=== PATIENT | female | born 1935 | race Asian ===

== ENCOUNTER 2020-12-07 19:04 | Emergency (ER) | payer MEDICARE ==
[~2020-12-07] VITALS: Ht 157.5 cm; Wt 56.7 kg
[2020-12-08] MEDS ORDERED: metFORMIN HYDROCHLORIDE 850 MG TAB PO ONE (00:15)
[2020-12-08] MEDS ORDERED: levETIRAcetam 500 MG TAB PO ONE (00:15)
[2020-12-08 02:00] VITALS: BP 117/85
== END 2020-12-08 02:03 | disposition home or self-care (01) ==
LOC: EDSEX 19:06 → ER 19:06
DX: S02.40CA Maxillary fracture, right side, initial encounter for closed fracture (principal); M25.511 Pain in right shoulder; E11.9 Type 2 diabetes mellitus without complications; Z95.0 Presence of cardiac pacemaker; W18.39XA Other fall on same level, initial encounter; Y93.89 Activity, other specified; Y92.89 Other specified places as the place of occurrence of the external cause; Y99.8 Other external cause status
CPT/HCPCS: 70450; 70486; 72125; 73030

== ENCOUNTER 2021-04-24 16:51 | Emergency (ER) | payer MEDICARE, OTHER ==
[2021-04-24] MEDS ORDERED: TETANUS-DIPTH-ACEL PERTUSSIS 0.5ML SYR Tdap IM ONE (17:00)
[2021-04-24] MEDS ORDERED: SODIUM CHLORIDE 0.9% 1,000 ML IV ONE (17:00)
[2021-04-24] MEDS ORDERED: cefTRIAXone 1GM/50ML D5W 50 ML IV ONE (17:00)
[2021-04-24 17:28] LABS: Eosinophils # (auto) 0.1 10 ^3/uL (0-0.8); Hematocrit 40.6 % (36.0-46.0); Lymphocytes # (auto) 1.5 10 ^3/uL (0.4-5.4); Monocytes # (auto) 0.5 10 ^3/uL (0-1.3)
[2021-04-24 17:30] LABS: Basophils # (auto) 0 10 ^3/uL (0-0.2); Basophils % (auto) 0.5 % (0.0-2.0); Eosinophils % (auto) 0.7 % (0.0-7.0); Hemoglobin 13.1 g/dL (12.2-16.2); Lymphocytes % (auto) 15.6 % (10.0-50.0); Mean Corpuscular Hemoglobin 26.3 pg (28.0-32.0); Mean Corpuscular Hgb Conc. 32.3 g/dL (32.0-36.0); Mean Corpuscular Volume 81.4 fL (80.0-100.0); Monocytes % (auto) 5.8 % (0.0-12.0); Neutrophils # (auto) 7.2 10 ^3/uL (1.6-8.6); Neutrophils % (auto) 77.4 % (37.0-80.0); Red Blood Cells 4.99 10^6/uL (4.0-5.20); Red Cell Distribution Width 14.6 % (11.8-14.3); White Blood Cell 9.3 10^3/uL (4.4-10.8)
[2021-04-24 17:45] LABS: Albumin 3.2 g/dL (3.4-5.0); BUN/Creatinine Ratio 22.7; Calcium 8.9 mg/dL (8.5-10.1); Potassium 4.6 mmol/L (3.5-5.1)
[2021-04-24 17:48] LABS: Bilirubin, Total 0.4 mg/dL (0.2-1.0)
[2021-04-24 18:01] LABS: INR 1.05 (0.9-1.15); Partial Thromboplastin Time 24.2 sec (23.6-33.0)
[2021-04-24] MEDS ORDERED: LIDOCAINE 2%HCL (LOCAL ANESTH.) INJ 20ML MDV ID ONE (18:15)
[2021-04-24] MEDS ORDERED: NEOMYCIN-BACITRACIN-POLYM UNITDOSE PKG TOP OINT TOP ONE (18:15)
[2021-04-24] MEDS ORDERED: MIDAZOLAM HCL 2MG/2ML 2ml VIAL (1mg/ml) ONE (18:27)
[2021-04-24] MEDS ORDERED: HYDROmorphone HCL 2 MG/ML VL IV ONE (18:45)
[2021-04-24 20:40] VITALS: BP 159/88
== END 2021-04-24 21:00 | disposition home or self-care (01) ==
LOC: EDBD 16:51 → ER 16:53
DX: S01.81XA Laceration without foreign body of other part of head, initial encounter (principal); S01.21XA Laceration without foreign body of nose, initial encounter; S40.012A Contusion of left shoulder, initial encounter; G30.9 Alzheimer's disease, unspecified; F02.80 Dementia in other diseases classified elsewhere, unspecified severity, without behavioral disturbance, psychotic disturbance, mood disturbance, and anxiety; I48.91 Unspecified atrial fibrillation; J32.9 Chronic sinusitis, unspecified; M17.11 Unilateral primary osteoarthritis, right knee; E46 Unspecified protein-calorie malnutrition; E11.9 Type 2 diabetes mellitus without complications; Z68.29 Body mass index [BMI] 29.0-29.9, adult; Z95.0 Presence of cardiac pacemaker; W01.0XXA Fall on same level from slipping, tripping and stumbling without subsequent striking against object, initial encounter; Y93.89 Activity, other specified; Y92.89 Other specified places as the place of occurrence of the external cause; Y99.8 Other external cause status
CPT/HCPCS: 12016; 36415; 70450; 70486; 71045; 72125; 73030; 73562; 80053; 83735; 85025; 85610; 85730; 90471; 90715; 93005; 96365; 96366; 96375; 99285; J0696; J1170; J2250

== ENCOUNTER 2022-06-28 16:34 | Emergency (ER) | payer MEDICARE ==
[~2022-06-28] VITALS: Ht 157.5 cm; Wt 48.0 kg
[2022-06-28] MEDS ORDERED: TETANUS-DIPTH-ACEL PERTUSSIS 0.5ML SYR Tdap IM ONE (20:30)
[2022-06-28] MEDS ORDERED: LIDOCAINE 1% HCL (LOCAL ANESTH.) INJ 20ML MDV ID ONE (20:30)
[2022-06-28] MEDS ORDERED: LIDOCAINE W/ EPINEPHRINE 2% INJ 20ML VIAL ONE (21:10)
[2022-06-28] MEDS ORDERED: LIDOCAINE W/ EPINEPHRINE 2% INJ 20ML VIAL IJ ONE (21:45)
[2022-06-28 21:54] VITALS: BP 147/75
== END 2022-06-28 22:05 | disposition home or self-care (01) ==
LOC: ER 16:34 → EDBD 16:34 → EDUNIT# 16:34 → ER 21:54
DX: S01.81XA Laceration without foreign body of other part of head, initial encounter (principal); E11.9 Type 2 diabetes mellitus without complications; W22.8XXA Striking against or struck by other objects, initial encounter; Y93.89 Activity, other specified; Y92.098 Other place in other non-institutional residence as the place of occurrence of the external cause; Y99.8 Other external cause status
CPT/HCPCS: 12011; 70450; 90471; 90715; 99284; J2001

== ENCOUNTER 2022-12-09 01:14 | Inpatient (IN) | payer MEDICARE, MEDICAID ==
[~2022-12-09] VITALS: Ht 157.5 cm; Wt 48.0 kg
[2022-12-09] VITALS (54 sets, daily range): BP systolic 73–177; BP diastolic 23–105
[2022-12-09] MEDS: ROCURONIUM 10MG/ML 10ML VIAL IV ONE ×2 (01:35→05:41)
[2022-12-09] MEDS: ETOMIDATE (2MG/ML) 20ML VIAL IV ONE ×2 (01:36→05:37)
[2022-12-09] MEDS: fentaNYL Drip 2500mCg/250mlNS 250 ML IV SCH ×2 (01:40→23:34)
[2022-12-09] MEDS ORDERED: ETOMIDATE (2MG/ML) 20ML VIAL IV ONE (01:45)
[2022-12-09] MEDS ORDERED: ROCURONIUM 10MG/ML 10ML VIAL IV ONE (01:45)
[2022-12-09 02:29] LABS: Albumin 2.8 g/dL (3.4-5.0); BUN/Creatinine Ratio 28.1 (10.0-20.0); Calcium 8.7 mg/dL (8.5-10.1); Potassium 3.9 mmol/L (3.5-5.1)
[2022-12-09 02:32] LABS: Bilirubin, Total 0.6 mg/dL (0.2-1.0); Total Protein 7.2 g/dL (6.4-8.2)
[2022-12-09 02:37] LABS: Eosinophils # (auto) 0 10 ^3/uL (0-0.8); Monocytes # (auto) 0.6 10 ^3/uL (0-1.3); Nucleated Red Blood Cells % 0.1 %; Red Cell Distribution Width 15.2 % (11.8-14.3); White Blood Cell 13.7 10^3/uL (4.4-10.8)
[2022-12-09 02:39] LABS: Basophils # (auto) 0 10 ^3/uL (0-0.2); Basophils % (auto) 0.3 % (0.0-2.0); Hematocrit 40.6 % (36.0-46.0); Hemoglobin 13.4 g/dL (12.2-16.2); Lymphocytes # (auto) 1.2 10 ^3/uL (0.4-5.4); Lymphocytes % (auto) 8.7 % (10.0-50.0); Mean Corpuscular Hemoglobin 25.8 pg (28.0-32.0); Mean Corpuscular Hgb Conc. 32.9 g/dL (32.0-36.0); Mean Corpuscular Volume 78.5 fL (80.0-100.0); Monocytes % (auto) 4.3 % (0.0-12.0); Neutrophils # (auto) 11.9 10 ^3/uL (1.6-8.6); Neutrophils % (auto) 86.7 % (37.0-80.0); Red Blood Cells 5.18 10^6/uL (4.0-5.20)
[2022-12-09 02:52] LABS: INR 1.15 (0.9-1.15); Partial Thromboplastin Time 25.6 sec (24.6-33.4)
[2022-12-09 03:05] LABS: Urine Bacteria FEW /hpf (None Seen); Urine Blood 1+ /uL (Negative); Urine Budding Yeast FEW /hpf (None Seen); Urine Mucus FEW (None Seen); Urine Specific Gravity 1.025 (1.001-1.035); Urine WBC 49 /hpf (0 - 5)
[2022-12-09] MEDS ORDERED: VANCOMYCIN 1GM/250ML 250 ML IV ONE (03:45)
[2022-12-09] MEDS ORDERED: PIPERACILLIN-TAZOB 3.375GM 100 ML IV ONE (03:45)
[2022-12-09] MEDS ORDERED: SODIUM CHLORIDE 0.9% 2,250 ML IV ONE (03:45)
[2022-12-09] MEDS ORDERED: ACETAMINOPHEN 650 MG RECT SUPP PR ONE (04:15)
[2022-12-09] MEDS ORDERED: ENOXAPARIN SOD 40 MG/0.4 ML SYRINGE SC ONE (04:15)
[2022-12-09] MEDS ORDERED: ONDANSETRON HCL 4 MG/2 ML VIAL IV PRN (09:45)
[2022-12-09] MEDS ORDERED: VANCOMYCIN PER PHARMACY 1,000 MG IV SCH (09:45)
[2022-12-09] MEDS: LEVOFLOXACIN 500 MG IV SCH (09:45)
[2022-12-09] MEDS ORDERED: DEXTROSE (50%) 50ML SYRG IV PRN (09:45)
[2022-12-09] MEDS ORDERED: FLUCONAZOLE 200MG/100ML 100 ML IV ONE (09:45)
[2022-12-09] MEDS: ENOXAPARIN SOD 40 MG/0.4 ML SYRINGE SC SCH (10:00)
[2022-12-09 10:21] LABS: Albumin 2.8 g/dL (3.4-5.0); Calcium 8.6 mg/dL (8.5-10.1); Magnesium 2.4 mg/dL (1.6-2.6); Potassium 4.3 mmol/L (3.5-5.1)
[2022-12-09 10:33] LABS: BUN/Creatinine Ratio 25.3 (10.0-20.0); Bilirubin, Total 0.8 mg/dL (0.2-1.0); Total Protein 7.1 g/dL (6.4-8.2)
[2022-12-09 10:38] LABS: Basophils # (auto) 0.1 10 ^3/uL (0-0.2); Eosinophils # (auto) 0 10 ^3/uL (0-0.8); Lymphocytes # (auto) 1.1 10 ^3/uL (0.4-5.4); Monocytes % (auto) 4.8 % (0.0-12.0); Neutrophils % (auto) 90.7 % (37.0-80.0); Red Cell Distribution Width 15.2 % (11.8-14.3)
[2022-12-09 10:40] LABS: Basophils % (auto) 0.4 % (0.0-2.0); Hematocrit 36.2 % (36.0-46.0); Hemoglobin 11.5 g/dL (12.2-16.2); Lymphocytes % (auto) 4.1 % (10.0-50.0); Mean Corpuscular Hgb Conc. 31.9 g/dL (32.0-36.0); Mean Corpuscular Volume 78.6 fL (80.0-100.0); Monocytes # (auto) 1.3 10 ^3/uL (0-1.3); Neutrophils # (auto) 23.6 10 ^3/uL (1.6-8.6)
[2022-12-09 10:48] LABS: Lactic Acid w/Reflex 2.9 mmol/L (0.4-2.0)
[2022-12-09] MEDS: NOREPINEPHRINE 8 MG/250ML KIT 250 ML IV SCH ×2 (12:00→20:22)
[2022-12-09] MEDS ORDERED: NOREPINEPHRINE 8 MG/250ML KIT 250 ML IV ONE (12:03)
[2022-12-09] MEDS: MIDAZOLAM DRIP 50 mg/50mL 50 ML IV SCH (12:45)
[2022-12-09] MEDS: ACCU-CHEK COMFORT CURVE STRIP VI SCH ×3 (12:55→23:34)
[2022-12-09] MEDS: InsuLIN REG 1unit/0.01ml Soln (100units/ml) SC SCH ×3 (12:56→23:35)
[2022-12-09] MEDS ORDERED: LIDOCAINE 1% (LOCAL ANESTH.) PF 5ml SDV ID ONE (14:00)
[2022-12-09] MEDS ORDERED: AMIODARONE HCL 150 MG in D5W 5% 100 ML IV ONE (14:30)
[2022-12-09] MEDS ORDERED: AMIODARONE 450mg/250ml AE 250 ML IV SCH (14:45)
[2022-12-09] MEDS: SODIUM CHLORIDE 0.9% 1,000 ML IV SCH ×2 (17:47→23:34)
[2022-12-09] MEDS: AMIODARONE 450mg/250ml AE 250 ML IV SCH (20:22)
[2022-12-09] MEDS: SODIUM CHLOR 0.9% PF (SALINE LOCK) 10ML VIAL/SYR IV SCH (20:23)
[2022-12-10] VITALS (105 sets, daily range): BP systolic 79–158; BP diastolic 24–128
[2022-12-10] MEDS: MIDAZOLAM DRIP 50 mg/50mL 50 ML IV SCH (00:02)
[2022-12-10] MEDS: AMIODARONE 450mg/250ml AE 250 ML IV SCH (00:09)
[2022-12-10 03:46] LABS: Alanine Aminotransferase 9 U/L (13-56); Albumin 2.4 g/dL (3.4-5.0); Anion Gap 12 (5-15); Aspartate Aminotransferase 19 U/L (15-37); BUN/Creatinine Ratio 19.1 (10.0-20.0); Blood Urea Nitrogen 21 mg/dL (7-18); Calcium 8.1 mg/dL (8.5-10.1); Carbon Dioxide 16 mmol/L (21-32); Chloride 103 mmol/L (98-107); GFR African American 60 mL/min; GFR Non-African American 50 mL/min; Glucose 127 mg/dL (74-106); Potassium 3.9 mmol/L (3.5-5.1); Sodium 131 mmol/L (136-145)
[2022-12-10 03:48] LABS: Hematocrit 44.1 % (36.0-46.0); Hemoglobin 12.6 g/dL (12.2-16.2); Mean Corpuscular Hemoglobin 25.4 pg (28.0-32.0); Mean Corpuscular Hgb Conc. 28.6 g/dL (32.0-36.0); Mean Corpuscular Volume 88.8 fL (80.0-100.0); Red Blood Cells 4.97 10^6/uL (4.0-5.20); Red Cell Distribution Width 16.4 % (11.8-14.3)
[2022-12-10 03:49] LABS: Alkaline Phosphatase 74 U/L (45-117); Bilirubin, Total 0.4 mg/dL (0.2-1.0); Total Protein 6.8 g/dL (6.4-8.2)
[2022-12-10 03:52] LABS: White Blood Cell 33.9 10^3/uL (4.4-10.8)
[2022-12-10] MEDS: NOREPINEPHRINE 8 MG/250ML KIT 250 ML IV SCH ×2 (03:52→17:41)
[2022-12-10 03:53] LABS: Basophils % (manual) 0 (0.0-2.0); Blast Cells 0; Eosinophils % (manual) 0 (0-7); Metamyelocytes % 0; Monocytes % (manual) 0 (0-12); Myelocytes % 0; Promyelocytes % 0; Reactive Lymphocytes 0
[2022-12-10] MEDS: fentaNYL Drip 2500mCg/250mlNS 250 ML IV SCH ×2 (05:22→15:08)
[2022-12-10] MEDS: ACCU-CHEK COMFORT CURVE STRIP VI SCH ×3 (05:36→17:12)
[2022-12-10] MEDS: InsuLIN REG 1unit/0.01ml Soln (100units/ml) SC SCH ×3 (05:36→17:11)
[2022-12-10 06:43] LABS: Band Neutrophils % (manual) 8; Lymphocytes % (manual) 7 (10.0-50.0)
[2022-12-10] MEDS: SODIUM CHLORIDE 0.9% 1,000 ML IV SCH (07:30)
[2022-12-10] MEDS: ENOXAPARIN SOD 40 MG/0.4 ML SYRINGE SC SCH (10:24)
[2022-12-10] MEDS: LEVOFLOXACIN 500 MG IV SCH (10:24)
[2022-12-10] MEDS: SODIUM CHLOR 0.9% PF (SALINE LOCK) 10ML VIAL/SYR IV SCH ×2 (10:25→22:40)
[2022-12-10] MEDS ORDERED: PANTOPRAZOLE 40 MG/10 ML VIAL INJ IV ONE (11:45)
[2022-12-10] MEDS: AMIODARONE HCL 200 MG TAB NG SCH ×2 (12:02→23:55)
[2022-12-10] MEDS ORDERED: IOHEXOL 350 MG/ML 100ML IJ ONE (16:03)
[2022-12-10] MEDS ORDERED: VANCOMYCIN 500 MG in D5W 5% 100 ML IV SCH (19:00)
[2022-12-10] MEDS: MUPIROCIN 2% OINT 15gm or 22gm FOR MRSA NARES EACHNOSTRI SCH (22:40)
[2022-12-11] VITALS (104 sets, daily range): BP systolic 74–132; BP diastolic 32–83
[2022-12-11] MEDS: NOREPINEPHRINE 8 MG/250ML KIT 250 ML IV SCH ×4 (00:04→17:30)
[2022-12-11] MEDS: ACCU-CHEK COMFORT CURVE STRIP VI SCH ×4 (00:12→17:37)
[2022-12-11] MEDS: SODIUM CHLORIDE 0.9% 1,000 ML IV SCH ×2 (02:02→17:08)
[2022-12-11] MEDS: MIDAZOLAM DRIP 50 mg/50mL 50 ML IV SCH ×2 (02:03→04:38)
[2022-12-11 04:13] LABS: Eosinophils # (auto) 0 10 ^3/uL (0-0.8); Hemoglobin 10.7 g/dL (12.2-16.2)
[2022-12-11 04:18] LABS: Basophils # (auto) 0 10 ^3/uL (0-0.2); Basophils % (auto) 0.2 % (0.0-2.0); Eosinophils % (auto) 0.1 % (0.0-7.0); Lymphocytes # (auto) 0.6 10 ^3/uL (0.4-5.4); Lymphocytes % (auto) 2.2 % (10.0-50.0); Mean Corpuscular Hemoglobin 25.4 pg (28.0-32.0); Mean Corpuscular Hgb Conc. 32.5 g/dL (32.0-36.0); Mean Corpuscular Volume 78.3 fL (80.0-100.0); Monocytes # (auto) 0.7 10 ^3/uL (0-1.3); Monocytes % (auto) 2.8 % (0.0-12.0); Neutrophils # (auto) 23.5 10 ^3/uL (1.6-8.6); Neutrophils % (auto) 94.7 % (37.0-80.0); Nucleated Red Blood Cells % 0.1 %; Red Blood Cells 4.22 10^6/uL (4.0-5.20); White Blood Cell 24.9 10^3/uL (4.4-10.8)
[2022-12-11 04:27] LABS: Calcium 7.6 mg/dL (8.5-10.1); Potassium 3.7 mmol/L (3.5-5.1)
[2022-12-11 04:30] LABS: BUN/Creatinine Ratio 15.8 (10.0-20.0)
[2022-12-11] MEDS: InsuLIN REG 1unit/0.01ml Soln (100units/ml) SC SCH ×4 (06:00→17:41)
[2022-12-11] MEDS ORDERED: DEXTROSE 10% 0 ML IV ONE (06:23)
[2022-12-11] MEDS: fentaNYL Drip 2500mCg/250mlNS 250 ML IV SCH (08:41)
[2022-12-11] MEDS: ENOXAPARIN SOD 40 MG/0.4 ML SYRINGE SC SCH (09:35)
[2022-12-11] MEDS: PANTOPRAZOLE 40 MG/10 ML VIAL INJ IV SCH (09:35)
[2022-12-11] MEDS: AMIODARONE HCL 200 MG TAB NG SCH ×2 (09:36→22:09)
[2022-12-11] MEDS: LEVOFLOXACIN 500 MG IV SCH (09:36)
[2022-12-11] MEDS: MUPIROCIN 2% OINT 15gm or 22gm FOR MRSA NARES EACHNOSTRI SCH ×2 (09:37→22:11)
[2022-12-11] MEDS: SODIUM CHLOR 0.9% PF (SALINE LOCK) 10ML VIAL/SYR IV SCH ×2 (09:37→22:10)
[2022-12-11] MEDS ORDERED: DEXTROSE 10% 250 ML IV ONE (11:59)
[2022-12-11] MEDS ORDERED: DEXTROSE 10% 250 ML Bag IV ONE (12:15)
[2022-12-11] MEDS ORDERED: levETIRAcetam 500 MG/5ML INJ IV ONE (22:22)
[2022-12-12] VITALS (106 sets, daily range): BP systolic 62–173; BP diastolic 25–92
[2022-12-12] MEDS: ACCU-CHEK COMFORT CURVE STRIP VI SCH ×4 (00:16→17:48)
[2022-12-12] MEDS: NOREPINEPHRINE 8 MG/250ML KIT 250 ML IV SCH ×4 (00:16→19:53)
[2022-12-12 04:36] LABS: Hemoglobin 9.8 g/dL (12.2-16.2); White Blood Cell 26.5 10^3/uL (4.4-10.8)
[2022-12-12 04:38] LABS: Hematocrit 30.7 % (36.0-46.0); Mean Corpuscular Hemoglobin 25.2 pg (28.0-32.0); Mean Corpuscular Volume 78.7 fL (80.0-100.0); Red Cell Distribution Width 14.9 % (11.8-14.3)
[2022-12-12 04:48] LABS: Calcium 7.4 mg/dL (8.5-10.1); Potassium 3.8 mmol/L (3.5-5.1)
[2022-12-12 04:50] LABS: BUN/Creatinine Ratio 14.7 (10.0-20.0)
[2022-12-12 04:53] LABS: Basophils % (manual) 0 (0.0-2.0); Blast Cells 0; Eosinophils % (manual) 0 (0-7); Metamyelocytes % 0; Myelocytes % 0; Promyelocytes % 0; Reactive Lymphocytes 0
[2022-12-12] MEDS: InsuLIN REG 1unit/0.01ml Soln (100units/ml) SC SCH ×4 (06:00→17:59)
[2022-12-12] MEDS: SODIUM CHLORIDE 0.9% 1,000 ML IV SCH (06:25)
[2022-12-12] MEDS: fentaNYL Drip 2500mCg/250mlNS 250 ML IV SCH (06:28)
[2022-12-12 08:11] LABS: Band Neutrophils % (manual) 4; Lymphocytes % (manual) 4 (10.0-50.0); Monocytes % (manual) 3 (0-12)
[2022-12-12] MEDS: LEVOFLOXACIN 500 MG IV SCH (09:52)
[2022-12-12] MEDS: PANTOPRAZOLE 40 MG/10 ML VIAL INJ IV SCH (10:44)
[2022-12-12] MEDS: SODIUM CHLOR 0.9% PF (SALINE LOCK) 10ML VIAL/SYR IV SCH ×2 (10:45→22:20)
[2022-12-12] MEDS: AMIODARONE HCL 200 MG TAB NG SCH ×2 (10:45→22:19)
[2022-12-12] MEDS: ENOXAPARIN SOD 40 MG/0.4 ML SYRINGE SC SCH (10:45)
[2022-12-12] MEDS: MUPIROCIN 2% OINT 15gm or 22gm FOR MRSA NARES EACHNOSTRI SCH ×2 (11:08→22:20)
[2022-12-12] MEDS: MIDAZOLAM DRIP 50 mg/50mL 50 ML IV SCH (12:45)
[2022-12-12] MEDS: SODIUM BICARBONATE 50ML VIAL 150 ML in D5W 5% 1,000 ML IV SCH (12:55)
[2022-12-12 13:42] LABS: Protein, Urine 51.3 mg/dL (0.0-11.9)
[2022-12-12] MEDS ORDERED: ALBUMIN 25% 100 ML IV ONE (15:30)
[2022-12-13] VITALS (106 sets, daily range): BP systolic 83–137; BP diastolic 37–75
[2022-12-13] MEDS: SODIUM BICARBONATE 50ML VIAL 150 ML in D5W 5% 1,000 ML IV SCH ×3 (00:49→15:20)
[2022-12-13] MEDS: InsuLIN REG 1unit/0.01ml Soln (100units/ml) SC SCH ×4 (00:54→17:32)
[2022-12-13] MEDS: ACCU-CHEK COMFORT CURVE STRIP VI SCH ×4 (00:54→17:32)
[2022-12-13 04:23] LABS: Hematocrit 26.8 % (36.0-46.0); Mean Corpuscular Hemoglobin 25.8 pg (28.0-32.0); Mean Corpuscular Hgb Conc. 33.6 g/dL (32.0-36.0); Mean Corpuscular Volume 76.7 fL (80.0-100.0); Red Blood Cells 3.49 10^6/uL (4.0-5.20); Red Cell Distribution Width 14.8 % (11.8-14.3); White Blood Cell 25.2 10^3/uL (4.4-10.8)
[2022-12-13 04:26] LABS: Band Neutrophils % (manual) 0; Basophils % (manual) 0 (0.0-2.0); Blast Cells 0; Eosinophils % (manual) 0 (0-7); Metamyelocytes % 0; Monocytes % (manual) 0 (0-12); Myelocytes % 0; Promyelocytes % 0; Reactive Lymphocytes 0
[2022-12-13 04:35] LABS: Calcium 7.4 mg/dL (8.5-10.1)
[2022-12-13] MEDS: fentaNYL Drip 2500mCg/250mlNS 250 ML IV SCH (06:21)
[2022-12-13 07:14] LABS: Lymphocytes % (manual) 3 (10.0-50.0)
[2022-12-13] MEDS: NOREPINEPHRINE 8 MG/250ML KIT 250 ML IV SCH (07:38)
[2022-12-13] MEDS: PANTOPRAZOLE 40 MG/10 ML VIAL INJ IV SCH (10:38)
[2022-12-13] MEDS: ENOXAPARIN SOD 30 MG/0.3 ML SYRINGE SC SCH (10:39)
[2022-12-13] MEDS: AMIODARONE HCL 200 MG TAB NG SCH ×2 (10:39→23:06)
[2022-12-13] MEDS: MUPIROCIN 2% OINT 15gm or 22gm FOR MRSA NARES EACHNOSTRI SCH ×2 (10:42→23:07)
[2022-12-13] MEDS ORDERED: OFLOXACIN OTIC(EAR) 0.3 % DROP 5ML EACH EAR ONE (11:00)
[2022-12-13] MEDS: SODIUM CHLOR 0.9% PF (SALINE LOCK) 10ML VIAL/SYR IV SCH ×2 (11:31→23:06)
[2022-12-13] MEDS: cefTRIAXone 1GM/50ML D5W 50 ML IV SCH (11:31)
[2022-12-13] MEDS: POTASSIUM CHL 20MEQ/100ML 100 ML IV SCH ×2 (12:32→14:18)
[2022-12-13] MEDS: MIDAZOLAM DRIP 50 mg/50mL 50 ML IV SCH (12:45)
[2022-12-13] MEDS ORDERED: ALBUMIN 25% 100 ML IV ONE (16:00)
[2022-12-14] VITALS (106 sets, daily range): BP systolic 82–169; BP diastolic 37–92
[2022-12-14] MEDS: InsuLIN REG 1unit/0.01ml Soln (100units/ml) SC SCH ×4 (00:28→18:13)
[2022-12-14] MEDS: ACCU-CHEK COMFORT CURVE STRIP VI SCH ×4 (00:28→18:10)
[2022-12-14] MEDS: NOREPINEPHRINE 8 MG/250ML KIT 250 ML IV SCH (00:30)
[2022-12-14] MEDS ORDERED: SODIUM BICARBONATE 8.4% INJ 50ML SYRINGE ONE (05:00)
[2022-12-14] MEDS: SODIUM BICARBONATE 50ML VIAL 150 ML in D5W 5% 1,000 ML IV SCH ×2 (06:23→20:13)
[2022-12-14 09:41] LABS: Eosinophils # (auto) 0 10 ^3/uL (0-0.8); Hemoglobin 7.6 g/dL (12.2-16.2); Lymphocytes # (auto) 0.4 10 ^3/uL (0.4-5.4); Lymphocytes % (auto) 2.5 % (10.0-50.0); Monocytes # (auto) 0.4 10 ^3/uL (0-1.3)
[2022-12-14 09:45] LABS: Basophils # (auto) 0.1 10 ^3/uL (0-0.2); Basophils % (auto) 0.5 % (0.0-2.0); Eosinophils % (auto) 0.1 % (0.0-7.0); Hematocrit 22.8 % (36.0-46.0); Mean Corpuscular Hemoglobin 25.8 pg (28.0-32.0); Mean Corpuscular Hgb Conc. 33.2 g/dL (32.0-36.0); Mean Corpuscular Volume 77.5 fL (80.0-100.0); Monocytes % (auto) 2.6 % (0.0-12.0); Neutrophils # (auto) 15.8 10 ^3/uL (1.6-8.6); Neutrophils % (auto) 94.3 % (37.0-80.0); Red Blood Cells 2.94 10^6/uL (4.0-5.20); White Blood Cell 16.8 10^3/uL (4.4-10.8)
[2022-12-14] MEDS: ENOXAPARIN SOD 30 MG/0.3 ML SYRINGE SC SCH (09:45)
[2022-12-14] MEDS: SODIUM CHLOR 0.9% PF (SALINE LOCK) 10ML VIAL/SYR IV SCH ×2 (09:45→22:38)
[2022-12-14] MEDS: PANTOPRAZOLE 40 MG/10 ML VIAL INJ IV SCH (09:45)
[2022-12-14] MEDS: AMIODARONE HCL 200 MG TAB NG SCH ×2 (09:45→22:20)
[2022-12-14] MEDS: cefTRIAXone 1GM/50ML D5W 50 ML IV SCH (09:45)
[2022-12-14] MEDS: MUPIROCIN 2% OINT 15gm or 22gm FOR MRSA NARES EACHNOSTRI SCH ×2 (09:46→22:22)
[2022-12-14] MEDS ORDERED: LEVOFLOXACIN 500 MG IV SCH (10:00)
[2022-12-14] MEDS: OFLOXACIN OTIC(EAR) 0.3 % DROP 5ML EACH EAR SCH (11:18)
[2022-12-14] MEDS: DOPamine 1600MCG/ML D5W 250 ML IV SCH (11:56)
[2022-12-14] MEDS: MIDAZOLAM DRIP 50 mg/50mL 50 ML IV SCH (12:45)
[2022-12-14 14:38] LABS: BUN/Creatinine Ratio 11.8 (10.0-20.0); Calcium 7.2 mg/dL (8.5-10.1); Potassium 3.1 mmol/L (3.5-5.1)
[2022-12-14] MEDS ORDERED: Vital AF 1.2 Cal 1 liter bottle GT SCH (16:45)
[2022-12-14] MEDS: POTASSIUM CHL 20MEQ/100ML 100 ML IV SCH ×2 (17:25→20:04)
[2022-12-15] VITALS (98 sets, daily range): BP systolic 70–191; BP diastolic 41–123
[2022-12-15] MEDS: ACCU-CHEK COMFORT CURVE STRIP VI SCH ×4 (00:34→17:52)
[2022-12-15] MEDS: InsuLIN REG 1unit/0.01ml Soln (100units/ml) SC SCH ×4 (00:37→18:14)
[2022-12-15] MEDS: fentaNYL Drip 2500mCg/250mlNS 250 ML IV SCH (01:30)
[2022-12-15 04:40] LABS: Basophils # (auto) 0 10 ^3/uL (0-0.2); Eosinophils # (auto) 0 10 ^3/uL (0-0.8); Lymphocytes # (auto) 0.3 10 ^3/uL (0.4-5.4); Lymphocytes % (auto) 2.6 % (10.0-50.0); Red Cell Distribution Width 14.8 % (11.8-14.3); White Blood Cell 10.4 10^3/uL (4.4-10.8)
[2022-12-15 04:41] LABS: Basophils % (auto) 0.1 % (0.0-2.0); Hematocrit 29.2 % (36.0-46.0); Mean Corpuscular Hemoglobin 26.3 pg (28.0-32.0); Mean Corpuscular Hgb Conc. 34.3 g/dL (32.0-36.0); Mean Corpuscular Volume 76.5 fL (80.0-100.0); Monocytes # (auto) 0.3 10 ^3/uL (0-1.3); Monocytes % (auto) 3.3 % (0.0-12.0); Neutrophils # (auto) 9.8 10 ^3/uL (1.6-8.6); Red Blood Cells 3.81 10^6/uL (4.0-5.20)
[2022-12-15] MEDS: SODIUM BICARBONATE 50ML VIAL 150 ML in D5W 5% 1,000 ML IV SCH (06:32)
[2022-12-15 07:43] LABS: Potassium 3.3 mmol/L (3.5-5.1)
[2022-12-15 07:55] LABS: BUN/Creatinine Ratio 12.4 (10.0-20.0); Calcium 7.5 mg/dL (8.5-10.1)
[2022-12-15] MEDS: cefTRIAXone 1GM/50ML D5W 50 ML IV SCH (09:04)
[2022-12-15] MEDS ORDERED: fentaNYL CITRATE 100 MCG/2 ML VL IM ONE (09:45)
[2022-12-15] MEDS ORDERED: hydrALAZINE HCL 20 MG/ML VL IV PRN (09:45)
[2022-12-15] MEDS: ENOXAPARIN SOD 30 MG/0.3 ML SYRINGE SC SCH (10:11)
[2022-12-15] MEDS: PANTOPRAZOLE 40 MG/10 ML VIAL INJ IV SCH (10:13)
[2022-12-15] MEDS: MUPIROCIN 2% OINT 15gm or 22gm FOR MRSA NARES EACHNOSTRI SCH (10:13)
[2022-12-15] MEDS: OFLOXACIN OTIC(EAR) 0.3 % DROP 5ML EACH EAR SCH (10:13)
[2022-12-15] MEDS: AMIODARONE HCL 200 MG TAB NG SCH ×2 (10:13→22:00)
[2022-12-15 10:42] LABS: Lactic Acid w/Reflex 3.2 mmol/L (0.4-2.0)
[2022-12-15] MEDS: SODIUM CHLOR 0.9% PF (SALINE LOCK) 10ML VIAL/SYR IV SCH ×2 (11:07→22:05)
[2022-12-15] MEDS: NOREPINEPHRINE 8 MG/250ML KIT 250 ML IV SCH (12:30)
[2022-12-15] MEDS: MIDAZOLAM DRIP 50 mg/50mL 50 ML IV SCH (12:45)
[2022-12-15] MEDS ORDERED: SODIUM CHLORIDE 0.9% 1,000 ML IV SCH (13:45)
[2022-12-15] MEDS ORDERED: POTASSIUM CHL 20MEQ/100ML 100 ML IV SCH (13:45)
[2022-12-15] MEDS: POTASSIUM CHL 20MEQ/100ML 100 ML IV SCH ×2 (14:12→15:55)
[2022-12-15] MEDS: SODIUM CHLORIDE 0.9% 1,000 ML IV SCH (14:13)
[2022-12-16] VITALS (98 sets, daily range): BP systolic 90–176; BP diastolic 45–96
[2022-12-16] MEDS: ACCU-CHEK COMFORT CURVE STRIP VI SCH ×4 (00:01→17:22)
[2022-12-16] MEDS: InsuLIN REG 1unit/0.01ml Soln (100units/ml) SC SCH ×4 (00:05→17:33)
[2022-12-16] MEDS: fentaNYL Drip 2500mCg/250mlNS 250 ML IV SCH (01:30)
[2022-12-16] MEDS: SODIUM CHLORIDE 0.9% 1,000 ML IV SCH ×3 (02:56→18:49)
[2022-12-16 03:52] LABS: Basophils # (auto) 0 10 ^3/uL (0-0.2); Eosinophils # (auto) 0 10 ^3/uL (0-0.8); Eosinophils % (auto) 0.2 % (0.0-7.0); Hematocrit 27.8 % (36.0-46.0); Lymphocytes # (auto) 0.3 10 ^3/uL (0.4-5.4); Mean Corpuscular Hemoglobin 25.7 pg (28.0-32.0); Red Blood Cells 3.68 10^6/uL (4.0-5.20)
[2022-12-16 03:54] LABS: Basophils % (auto) 0.2 % (0.0-2.0); Hemoglobin 9.4 g/dL (12.2-16.2); Lymphocytes % (auto) 4.5 % (10.0-50.0); Mean Corpuscular Volume 75.5 fL (80.0-100.0); Monocytes # (auto) 0.7 10 ^3/uL (0-1.3); Neutrophils # (auto) 6.6 10 ^3/uL (1.6-8.6); Neutrophils % (auto) 86.1 % (37.0-80.0); Red Cell Distribution Width 15.1 % (11.8-14.3); White Blood Cell 7.7 10^3/uL (4.4-10.8)
[2022-12-16 04:07] LABS: BUN/Creatinine Ratio 15.3 (10.0-20.0); Calcium 6.6 mg/dL (8.5-10.1)
[2022-12-16] MEDS: DOPamine 1600MCG/ML D5W 250 ML IV SCH ×2 (07:51→10:15)
[2022-12-16] MEDS: OFLOXACIN OTIC(EAR) 0.3 % DROP 5ML EACH EAR SCH (09:44)
[2022-12-16] MEDS: cefTRIAXone 1GM/50ML D5W 50 ML IV SCH (09:44)
[2022-12-16] MEDS: AMIODARONE HCL 200 MG TAB NG SCH ×2 (09:45→22:16)
[2022-12-16] MEDS: ENOXAPARIN SOD 30 MG/0.3 ML SYRINGE SC SCH (09:45)
[2022-12-16] MEDS: PANTOPRAZOLE 40 MG/10 ML VIAL INJ IV SCH (09:45)
[2022-12-16] MEDS: SODIUM CHLOR 0.9% PF (SALINE LOCK) 10ML VIAL/SYR IV SCH ×2 (09:45→22:16)
[2022-12-16] MEDS: NOREPINEPHRINE 8 MG/250ML KIT 250 ML IV SCH (12:30)
[2022-12-16] MEDS: MIDAZOLAM DRIP 50 mg/50mL 50 ML IV SCH (12:45)
[2022-12-16] MEDS: POTASSIUM CHL 20MEQ/100ML 100 ML IV SCH ×2 (17:23→18:49)
[2022-12-17] VITALS (68 sets, daily range): BP systolic 93–179; BP diastolic 53–101
[2022-12-17 04:17] LABS: Calcium 7.1 mg/dL (8.5-10.1); Potassium 3.6 mmol/L (3.5-5.1)
[2022-12-17 04:20] LABS: BUN/Creatinine Ratio 15.2 (10.0-20.0)
[2022-12-17 04:50] LABS: Basophils # (auto) 0 10 ^3/uL (0-0.2); Eosinophils # (auto) 0 10 ^3/uL (0-0.8); Eosinophils % (auto) 0.4 % (0.0-7.0); Mean Corpuscular Hemoglobin 25.9 pg (28.0-32.0); Red Cell Distribution Width 15.1 % (11.8-14.3)
[2022-12-17 04:53] LABS: Basophils % (auto) 0.2 % (0.0-2.0); Hematocrit 28.1 % (36.0-46.0); Hemoglobin 9.6 g/dL (12.2-16.2); Lymphocytes # (auto) 0.5 10 ^3/uL (0.4-5.4); Lymphocytes % (auto) 6.6 % (10.0-50.0); Mean Corpuscular Hgb Conc. 34.3 g/dL (32.0-36.0); Mean Corpuscular Volume 75.5 fL (80.0-100.0); Monocytes # (auto) 0.7 10 ^3/uL (0-1.3); Monocytes % (auto) 9.5 % (0.0-12.0); Neutrophils # (auto) 6.4 10 ^3/uL (1.6-8.6); Neutrophils % (auto) 83.3 % (37.0-80.0); Red Blood Cells 3.72 10^6/uL (4.0-5.20); White Blood Cell 7.7 10^3/uL (4.4-10.8)
[2022-12-17] MEDS: ACCU-CHEK COMFORT CURVE STRIP VI SCH ×4 (06:00→17:29)
[2022-12-17] MEDS: InsuLIN REG 1unit/0.01ml Soln (100units/ml) SC SCH ×4 (06:00→17:29)
[2022-12-17] MEDS: fentaNYL Drip 2500mCg/250mlNS 250 ML IV SCH (07:30)
[2022-12-17] MEDS: cefTRIAXone 1GM/50ML D5W 50 ML IV SCH (08:34)
[2022-12-17] MEDS: OFLOXACIN OTIC(EAR) 0.3 % DROP 5ML EACH EAR SCH (10:35)
[2022-12-17] MEDS: ENOXAPARIN SOD 30 MG/0.3 ML SYRINGE SC SCH (10:36)
[2022-12-17] MEDS: AMIODARONE HCL 200 MG TAB NG SCH ×2 (10:36→22:27)
[2022-12-17] MEDS: PANTOPRAZOLE 40 MG/10 ML VIAL INJ IV SCH (10:36)
[2022-12-17] MEDS: SODIUM CHLOR 0.9% PF (SALINE LOCK) 10ML VIAL/SYR IV SCH ×2 (10:36→22:27)
[2022-12-17] MEDS: SODIUM CHLORIDE 0.9% 1,000 ML IV SCH (12:00)
[2022-12-17] MEDS: DOPamine 1600MCG/ML D5W 250 ML IV SCH (12:01)
[2022-12-17] MEDS: NOREPINEPHRINE 8 MG/250ML KIT 250 ML IV SCH (12:30)
[2022-12-17] MEDS: MIDAZOLAM DRIP 50 mg/50mL 50 ML IV SCH (12:34)
[2022-12-18] VITALS (35 sets, daily range): BP systolic 103–217; BP diastolic 54–115
[2022-12-18] MEDS: SODIUM CHLORIDE 0.9% 1,000 ML IV SCH (01:40)
[2022-12-18] MEDS: InsuLIN REG 1unit/0.01ml Soln (100units/ml) SC SCH ×4 (06:00→18:00)
[2022-12-18] MEDS: ACCU-CHEK COMFORT CURVE STRIP VI SCH ×4 (06:18→18:17)
[2022-12-18 08:16] LABS: Basophils # (auto) 0 10 ^3/uL (0-0.2); Eosinophils % (auto) 0.5 % (0.0-7.0); Hemoglobin 9.9 g/dL (12.2-16.2); Monocytes # (auto) 0.8 10 ^3/uL (0-1.3); Neutrophils # (auto) 7.9 10 ^3/uL (1.6-8.6)
[2022-12-18 08:17] LABS: Basophils % (auto) 0.1 % (0.0-2.0); Eosinophils # (auto) 0 10 ^3/uL (0-0.8); Lymphocytes # (auto) 0.6 10 ^3/uL (0.4-5.4); Lymphocytes % (auto) 6.2 % (10.0-50.0); Mean Corpuscular Hemoglobin 25.1 pg (28.0-32.0); Mean Corpuscular Hgb Conc. 33.1 g/dL (32.0-36.0); Monocytes % (auto) 8.4 % (0.0-12.0); Neutrophils % (auto) 84.8 % (37.0-80.0); Red Blood Cells 3.95 10^6/uL (4.0-5.20); Red Cell Distribution Width 15.1 % (11.8-14.3); White Blood Cell 9.3 10^3/uL (4.4-10.8)
[2022-12-18 08:50] LABS: Calcium 7.1 mg/dL (8.5-10.1); Potassium 3.2 mmol/L (3.5-5.1)
[2022-12-18 08:52] LABS: BUN/Creatinine Ratio 15.4 (10.0-20.0)
[2022-12-18] MEDS: ENOXAPARIN SOD 30 MG/0.3 ML SYRINGE SC SCH (10:21)
[2022-12-18] MEDS: PANTOPRAZOLE 40 MG/10 ML VIAL INJ IV SCH (10:21)
[2022-12-18] MEDS: OFLOXACIN OTIC(EAR) 0.3 % DROP 5ML EACH EAR SCH (10:22)
[2022-12-18] MEDS: cefTRIAXone 1GM/50ML D5W 50 ML IV SCH (10:22)
[2022-12-18] MEDS: AMIODARONE HCL 200 MG TAB NG SCH ×3 (10:37→22:25)
[2022-12-18] MEDS: SODIUM CHLOR 0.9% PF (SALINE LOCK) 10ML VIAL/SYR IV SCH ×2 (10:39→22:25)
[2022-12-18] MEDS: NOREPINEPHRINE 8 MG/250ML KIT 250 ML IV SCH (12:30)
[2022-12-18] MEDS ORDERED: DEXTROSE 10% 250 ML IV ONE ×2 (12:39→18:03)
[2022-12-18] MEDS: POTASSIUM CHL 20MEQ/100ML 100 ML IV SCH ×2 (13:14→14:50)
[2022-12-18] MEDS: hydrALAZINE HCL 20 MG/ML VL IV PRN ×2 (14:06→20:41)
[2022-12-19] VITALS (8 sets, daily range): BP systolic 103–146; BP diastolic 45–68
[2022-12-19] MEDS ORDERED: FUROSEMIDE 40 MG/4 ML VIAL IV ONE (00:45)
[2022-12-19] MEDS ORDERED: IPRATROPIUM BROM 0.5 MG/2.5ML INH SOL NEB SCH ×2 (01:15→02:00)
[2022-12-19] MEDS ORDERED: ALBUTEROL SULF 2.5 MG/0.5ML(0.5%) NEB SOLN NEB PRN (02:00)
[2022-12-19] MEDS ORDERED: ALBUTEROL SULF 2.5 MG/0.5ML(0.5%) NEB SOLN NEB SCH (02:00)
[2022-12-19] MEDS: ACCU-CHEK COMFORT CURVE STRIP VI SCH ×4 (06:00→18:16)
[2022-12-19] MEDS: InsuLIN REG 1unit/0.01ml Soln (100units/ml) SC SCH ×4 (06:00→18:22)
[2022-12-19] MEDS: FUROSEMIDE 40 MG/4 ML VIAL IV SCH (10:48)
[2022-12-19] MEDS: PANTOPRAZOLE 40 MG/10 ML VIAL INJ IV SCH (10:48)
[2022-12-19] MEDS: ENOXAPARIN SOD 30 MG/0.3 ML SYRINGE SC SCH (10:48)
[2022-12-19] MEDS: AMIODARONE HCL 200 MG TAB NG SCH ×2 (10:49→22:20)
[2022-12-19] MEDS: OFLOXACIN OTIC(EAR) 0.3 % DROP 5ML EACH EAR SCH (11:00)
[2022-12-19] MEDS: cefTRIAXone 1GM/50ML D5W 50 ML IV SCH (11:09)
[2022-12-19] MEDS: SODIUM CHLOR 0.9% PF (SALINE LOCK) 10ML VIAL/SYR IV SCH ×2 (11:10→22:21)
[2022-12-20] MEDS: InsuLIN REG 1unit/0.01ml Soln (100units/ml) SC SCH ×3 (01:09→12:00)
[2022-12-20] MEDS: ACCU-CHEK COMFORT CURVE STRIP VI SCH ×3 (01:10→12:03)
[2022-12-20 05:00] VITALS: BP 102/41
[2022-12-20 05:47] LABS: Basophils # (auto) 0 10 ^3/uL (0-0.2); Basophils % (auto) 0.2 % (0.0-2.0); Eosinophils # (auto) 0 10 ^3/uL (0-0.8); Eosinophils % (auto) 0.2 % (0.0-7.0); Monocytes # (auto) 0.8 10 ^3/uL (0-1.3)
[2022-12-20 05:49] LABS: Hemoglobin 8.6 g/dL (12.2-16.2); Lymphocytes # (auto) 0.9 10 ^3/uL (0.4-5.4); Lymphocytes % (auto) 7.6 % (10.0-50.0); Mean Corpuscular Hemoglobin 25.8 pg (28.0-32.0); Mean Corpuscular Hgb Conc. 34.2 g/dL (32.0-36.0); Mean Corpuscular Volume 75.4 fL (80.0-100.0); Neutrophils # (auto) 9.8 10 ^3/uL (1.6-8.6); Red Blood Cells 3.32 10^6/uL (4.0-5.20); Red Cell Distribution Width 14.8 % (11.8-14.3); White Blood Cell 11.6 10^3/uL (4.4-10.8)
[2022-12-20 06:14] LABS: BUN/Creatinine Ratio 21.3 (10.0-20.0); Calcium 6.6 mg/dL (8.5-10.1); Potassium 3.3 mmol/L (3.5-5.1)
[2022-12-20] MEDS: PANTOPRAZOLE 40 MG/10 ML VIAL INJ IV SCH (09:32)
[2022-12-20] MEDS: ENOXAPARIN SOD 30 MG/0.3 ML SYRINGE SC SCH (09:33)
[2022-12-20] MEDS: AMIODARONE HCL 200 MG TAB NG SCH (09:33)
[2022-12-20] MEDS: FUROSEMIDE 40 MG/4 ML VIAL IV SCH (09:33)
[2022-12-20] MEDS: SODIUM CHLOR 0.9% PF (SALINE LOCK) 10ML VIAL/SYR IV SCH (09:33)
[2022-12-20] MEDS: OFLOXACIN OTIC(EAR) 0.3 % DROP 5ML EACH EAR SCH (09:36)
[2022-12-20] MEDS ORDERED: APIX2.5T PO (10:19)
[2022-12-20 10:51] VITALS: BP 146/46
[2022-12-20 13:00] VITALS: BP 155/59
[2022-12-20 14:31] VITALS: BP 146/46
[2022-12-20 17:00] VITALS: BP 169/58
== END 2022-12-20 18:11 | disposition home health service (06) | DRG 870 ==
LOC: EDBD 01:14 → ER 01:18 → TELE 09:51 → ICU WEST 10:43 → TELE-EAST 12-18 23:32
PROVIDERS: ADMIT Nurse Practitioner Family; ATTEND Internal Medicine Pulmonary Disease
PROC: 0BH17EZ Insertion of Endotracheal Airway into Trachea, Via Natural or Artificial Opening (ICD-10-PCS; principal; 2022-12-09)
PROC: 5A1955Z Respiratory Ventilation, Greater than 96 Consecutive Hours (ICD-10-PCS; 2022-12-09)
PROC: 02H633Z Insertion of Infusion Device into Right Atrium, Percutaneous Approach (ICD-10-PCS; 2022-12-09)
PROC: B548ZZA Ultrasonography of Superior Vena Cava, Guidance (ICD-10-PCS; 2022-12-09)
PROC: 5A09357 Assistance with Respiratory Ventilation, Less than 24 Consecutive Hours, Continuous Positive Airway Pressure (ICD-10-PCS; 2022-12-19)
PROC: 5A09357 Assistance with Respiratory Ventilation, Less than 24 Consecutive Hours, Continuous Positive Airway Pressure (ICD-10-PCS; 2022-12-20)
DX: A41.9 Sepsis, unspecified organism (principal); E43 Unspecified severe protein-calorie malnutrition; J96.01 Acute respiratory failure with hypoxia; G93.41 Metabolic encephalopathy; N17.0 Acute kidney failure with tubular necrosis; N30.00 Acute cystitis without hematuria; J90 Pleural effusion, not elsewhere classified; E87.1 Hypo-osmolality and hyponatremia; E87.4 Mixed disorder of acid-base balance; I31.39 Other pericardial effusion (noninflammatory); J98.11 Atelectasis; E11.65 Type 2 diabetes mellitus with hyperglycemia; E86.0 Dehydration; H66.90 Otitis media, unspecified, unspecified ear; B95.8 Unspecified staphylococcus as the cause of diseases classified elsewhere; B96.1 Klebsiella pneumoniae [K. pneumoniae] as the cause of diseases classified elsewhere; B96.20 Unspecified Escherichia coli [E. coli] as the cause of diseases classified elsewhere; E11.22 Type 2 diabetes mellitus with diabetic chronic kidney disease; E87.6 Hypokalemia; E88.09 Other disorders of plasma-protein metabolism, not elsewhere classified; N18.9 Chronic kidney disease, unspecified; I48.91 Unspecified atrial fibrillation; N76.0 Acute vaginitis; Z82.49 Family history of ischemic heart disease and other diseases of the circulatory system; Z82.5 Family history of asthma and other chronic lower respiratory diseases; Z82.0 Family history of epilepsy and other diseases of the nervous system; G30.9 Alzheimer's disease, unspecified
CPT/HCPCS: 31500; 36415; 36569; 36600; 70450; 71045; 71275; 76604; 76775; 80048; 80053; 80202; 81001; 82306; 82570; 82805; 82962; 83605; 83735; 83880; 83970; 84100; 84156; 84300; 84484; 85007; 85025; 85027; 85610; 85730; 87040; 87070; 87077; 87081; 87086; 87088; 87186; 87205; 93005; 93306; 93970; 94002; 94003; 94660; 96365; 96367; 96372; 99291; C9113; G0378; J0696; J1450; J1815; J1956; J2250; J2543; J3480; J7060; P9047

== ENCOUNTER 2022-12-22 02:03 | Inpatient (IN) | payer MEDICARE, MEDICAID ==
[2022-12-22] VITALS (11 sets, daily range): BP systolic 88–136; BP diastolic 25–101
[~2022-12-22] VITALS: Ht 157.5 cm; Wt 47.5 kg
[2022-12-22] MEDS: PHENYLEPHRINE IV 250 ML IV SCH (00:15)
[~2022-12-22 02:03] MED LIST: APIX2.5T PO
[2022-12-22] MEDS ORDERED: CALCIUM CHL 100MG/ML 1,000 MG in D5W 5% 100 ML IV ONE (02:05)
[2022-12-22] MEDS ORDERED: SODIUM BICARBONATE 8.4 % INJ 50ML VIAL IV ONE (02:08)
[2022-12-22] MEDS ORDERED: VANCOMYCIN 1GM/250ML 250 ML IV ONE ×2 (02:09→02:45)
[2022-12-22] MEDS ORDERED: ROCURONIUM 10MG/ML 10ML VIAL IV ONE ×2 (02:13→02:45)
[2022-12-22] MEDS ORDERED: PROPOFOL 100 ML IV ONE (02:16)
[2022-12-22] MEDS ORDERED: PIPERACILLIN-TAZOB 3.375GM 100 ML IV ONE ×2 (02:16→02:45)
[2022-12-22] MEDS ORDERED: MIDAZOLAM DRIP 50 mg/50mL 50 ML IV ONE (02:16)
[2022-12-22] MEDS ORDERED: DOPamine 1600MCG/ML D5W 250 ML IV ONE (02:18)
[2022-12-22] MEDS: DOPamine 1600MCG/ML D5W 250 ML IV SCH ×6 (02:22→16:11)
[2022-12-22] MEDS ORDERED: HYDROCORTISONE SOD SUCC 100 MG/2ML INJ VIAL ONE (02:37)
[2022-12-22] MEDS ORDERED: NOREPINEPHRINE 8 MG/250ML KIT 250 ML IV ONE (02:41)
[2022-12-22] MEDS ORDERED: HYDROCORTISONE SOD SUCC 100 MG/2ML INJ VIAL IV ONE (02:45)
[2022-12-22] MEDS ORDERED: ETOMIDATE (2MG/ML) 20ML VIAL IV ONE (02:45)
[2022-12-22] MEDS: NOREPINEPHRINE 8 MG/250ML KIT 250 ML IV SCH ×2 (02:50→13:38)
[2022-12-22 04:20] LABS: Mean Corpuscular Hgb Conc. 29.6 g/dL (32.0-36.0)
[2022-12-22 04:22] LABS: Hematocrit 21.2 % (36.0-46.0); Mean Corpuscular Hemoglobin 25.9 pg (28.0-32.0); Mean Corpuscular Volume 87.4 fL (80.0-100.0); Red Blood Cells 2.43 10^6/uL (4.0-5.20); Red Cell Distribution Width 16.9 % (11.8-14.3); White Blood Cell 19.5 10^3/uL (4.4-10.8)
[2022-12-22 04:23] LABS: Albumin 1.7 g/dL (3.4-5.0); Calcium 8.8 mg/dL (8.5-10.1); Magnesium 3.7 mg/dL (1.6-2.6); Potassium 3.2 mmol/L (3.5-5.1)
[2022-12-22 04:26] LABS: INR 1.64 (0.9-1.15); Partial Thromboplastin Time 37.4 sec (24.6-33.4)
[2022-12-22 04:27] LABS: Hemoglobin 6.3 g/dL (12.2-16.2)
[2022-12-22 04:28] LABS: Basophils % (manual) 0 (0.0-2.0); Blast Cells 0; Eosinophils % (manual) 0 (0-7); Lactic Acid w/Reflex 2.6 mmol/L (0.4-2.0); Metamyelocytes % 0; Myelocytes % 0; Promyelocytes % 0; Reactive Lymphocytes 0
[2022-12-22 04:32] LABS: BUN/Creatinine Ratio 22.3 (10.0-20.0); Bilirubin, Total 0.7 mg/dL (0.2-1.0)
[2022-12-22] MEDS ORDERED: InsuLIN REG 1unit/0.01ml Soln (100units/ml) IV ONE (05:00)
[2022-12-22 05:57] LABS: Band Neutrophils % (manual) 2; Lymphocytes % (manual) 5 (10.0-50.0); Monocytes % (manual) 3 (0-12)
[2022-12-22] MEDS: MIDAZOLAM DRIP 50 mg/50mL 50 ML IV SCH ×2 (08:55→13:37)
[2022-12-22] MEDS ORDERED: DEXTROSE (50%) 50ML SYRG IV PRN ×2 (10:30)
[2022-12-22] MEDS ORDERED: ONDANSETRON HCL 4 MG/2 ML VIAL IV PRN (10:30)
[2022-12-22] MEDS ORDERED: POTASSIUM CHL 20MEQ/100ML 100 ML IV ONE (10:30)
[2022-12-22] MEDS ORDERED: ACCU-CHEK COMFORT CURVE STRIP VI SCH (10:30)
[2022-12-22] MEDS ORDERED: VANCOMYCIN PER PHARMACY 0 MG IV SCH (10:30)
[2022-12-22] MEDS ORDERED: CEFEPIME 2GM/50ML NS 50 ML IV SCH (10:53)
[2022-12-22 11:02] LABS: Urine Bacteria MANY /hpf (None Seen); Urine Blood 2+ /uL (Negative); Urine Budding Yeast LOADED /hpf (None Seen); Urine Specific Gravity 1.026 (1.001-1.035); Urine WBC 24 /hpf (0 - 5)
[2022-12-22 11:12] LABS: Creatinine, Urine 37 mg/dL (30.0-125.0); Sodium Urine 36 mmol/L (40-220)
[2022-12-22 11:24] LABS: Hemoglobin 9.9 g/dL (12.2-16.2)
[2022-12-22 11:27] LABS: Hematocrit 31.1 % (36.0-46.0); Mean Corpuscular Hemoglobin 25.2 pg (28.0-32.0); Mean Corpuscular Hgb Conc. 31.8 g/dL (32.0-36.0); Mean Corpuscular Volume 79.1 fL (80.0-100.0); Red Blood Cells 3.93 10^6/uL (4.0-5.20); Red Cell Distribution Width 15.4 % (11.8-14.3)
[2022-12-22 11:35] LABS: White Blood Cell 31.3 10^3/uL (4.4-10.8)
[2022-12-22 11:36] LABS: Basophils % (manual) 0 (0.0-2.0); Blast Cells 0; Eosinophils % (manual) 0 (0-7); Metamyelocytes % 0; Myelocytes % 0; Promyelocytes % 0; Reactive Lymphocytes 0
[2022-12-22 11:46] LABS: Albumin 2.1 g/dL (3.4-5.0); Calcium 7.7 mg/dL (8.5-10.1); Lactic Acid w/Reflex 5.4 mmol/L (0.4-2.0); Magnesium 2.4 mg/dL (1.6-2.6); Potassium 3.5 mmol/L (3.5-5.1)
[2022-12-22 11:50] LABS: Bilirubin, Total 0.7 mg/dL (0.2-1.0); Total Protein 5.7 g/dL (6.4-8.2)
[2022-12-22 12:08] LABS: Band Neutrophils % (manual) 4; Lymphocytes % (manual) 1 (10.0-50.0); Monocytes % (manual) 1 (0-12)
[2022-12-22] MEDS: PROPOFOL 100 ML IV SCH (13:27)
[2022-12-22] MEDS: InsuLIN REG 1unit/0.01ml Soln (100units/ml) SC SCH ×3 (13:27→23:54)
[2022-12-22] MEDS: ACCU-CHEK COMFORT CURVE STRIP VI SCH ×3 (14:00→22:32)
[2022-12-22] MEDS ORDERED: BUMETANIDE 2.5mg/10ml (0.25 mg/ml) INJ IV ONE (15:45)
[2022-12-22] MEDS ORDERED: FUROSEMIDE 20 MG/2 ML VIAL IV ONE (20:00)
[2022-12-22] MEDS: DOPamine 3200MCG/ML 250 ML IV SCH (20:25)
[2022-12-22] MEDS ORDERED: ALBUMIN 25% 50 ML IV ONE (22:15)
[2022-12-22 23:17] LABS: Mean Corpuscular Volume 78.1 fL (80.0-100.0); White Blood Cell 27.1 10^3/uL (4.4-10.8)
[2022-12-22 23:18] LABS: Mean Corpuscular Hemoglobin 25.3 pg (28.0-32.0); Mean Corpuscular Hgb Conc. 32.4 g/dL (32.0-36.0); Red Blood Cells 3.96 10^6/uL (4.0-5.20); Red Cell Distribution Width 15.4 % (11.8-14.3)
[2022-12-22 23:24] LABS: Basophils % (manual) 0 (0.0-2.0); Blast Cells 0; Eosinophils % (manual) 0 (0-7); Metamyelocytes % 0; Monocytes % (manual) 0 (0-12); Myelocytes % 0; Promyelocytes % 0; Reactive Lymphocytes 0
[2022-12-22 23:32] LABS: Band Neutrophils % (manual) 1; Lymphocytes % (manual) 3 (10.0-50.0)
[2022-12-23] VITALS (100 sets, daily range): BP systolic 66–139; BP diastolic 17–82
[2022-12-23] MEDS: NOREPINEPHRINE 8 MG/250ML KIT 250 ML IV SCH ×3 (01:51→12:18)
[2022-12-23] MEDS: InsuLIN REG 1unit/0.01ml Soln (100units/ml) SC SCH ×6 (01:58→21:21)
[2022-12-23] MEDS: ACCU-CHEK COMFORT CURVE STRIP VI SCH ×6 (02:00→21:21)
[2022-12-23] MEDS: PROPOFOL 100 ML IV SCH (02:45)
[2022-12-23 04:18] LABS: Basophils # (auto) 0 10 ^3/uL (0-0.2); Eosinophils # (auto) 0 10 ^3/uL (0-0.8); Hemoglobin 9.2 g/dL (12.2-16.2); Monocytes # (auto) 0.8 10 ^3/uL (0-1.3)
[2022-12-23 04:24] LABS: Basophils % (auto) 0.1 % (0.0-2.0); Eosinophils % (auto) 0.1 % (0.0-7.0); Hematocrit 27.6 % (36.0-46.0); Lymphocytes # (auto) 0.7 10 ^3/uL (0.4-5.4); Lymphocytes % (auto) 3.1 % (10.0-50.0); Mean Corpuscular Hemoglobin 25.8 pg (28.0-32.0); Mean Corpuscular Hgb Conc. 33.4 g/dL (32.0-36.0); Mean Corpuscular Volume 77.2 fL (80.0-100.0); Monocytes % (auto) 3.8 % (0.0-12.0); Neutrophils # (auto) 19.6 10 ^3/uL (1.6-8.6); Neutrophils % (auto) 92.9 % (37.0-80.0); Red Blood Cells 3.58 10^6/uL (4.0-5.20); Red Cell Distribution Width 15.2 % (11.8-14.3); White Blood Cell 21.1 10^3/uL (4.4-10.8)
[2022-12-23 04:37] LABS: Albumin 2.4 g/dL (3.4-5.0); Calcium 8.2 mg/dL (8.5-10.1); Potassium 3.7 mmol/L (3.5-5.1)
[2022-12-23 04:40] LABS: BUN/Creatinine Ratio 30.2 (10.0-20.0); Bilirubin, Total 0.4 mg/dL (0.2-1.0); Total Protein 5.6 g/dL (6.4-8.2)
[2022-12-23 04:44] LABS: Lactic Acid w/Reflex 2.3 mmol/L (0.4-2.0)
[2022-12-23] MEDS: PHENYLEPHRINE IV 250 ML IV SCH ×3 (06:35→13:17)
[2022-12-23] MEDS: FUROSEMIDE 20 MG/2 ML VIAL IV SCH (08:43)
[2022-12-23] MEDS: ENOXAPARIN SOD 30 MG/0.3 ML SYRINGE SC SCH (08:44)
[2022-12-23] MEDS: MIDAZOLAM DRIP 50 mg/50mL 50 ML IV SCH ×2 (08:45→23:14)
[2022-12-23] MEDS: CEFEPIME 2GM/50ML NS 50 ML IV SCH ×2 (08:47→09:52)
[2022-12-23] MEDS: DOPamine 3200MCG/ML 250 ML IV SCH (10:25)
[2022-12-23] MEDS: PIPERACILLIN-TAZOB 3.375GM 100 ML IV SCH ×2 (13:22→21:04)
[2022-12-23] MEDS: NOREPINEPHRINE BITARTRATE 32 MG in SODIUM CHL 0.9% 218 ML IV SCH ×2 (13:30→17:12)
[2022-12-23] MEDS: DEXTROSE 10% 250 ML Bag IV PRN (13:38)
[2022-12-23] MEDS: PHENYLEPHRINE INJ 80 MG in SODIUM CHL 0.9% 242 ML IV SCH (16:45)
[2022-12-24] VITALS (101 sets, daily range): BP systolic 71–147; BP diastolic 25–77
[2022-12-24] MEDS: PROPOFOL 100 ML IV SCH (01:45)
[2022-12-24] MEDS: InsuLIN REG 1unit/0.01ml Soln (100units/ml) SC SCH ×6 (02:00→21:29)
[2022-12-24] MEDS: ACCU-CHEK COMFORT CURVE STRIP VI SCH ×6 (02:01→21:08)
[2022-12-24 03:49] LABS: Basophils # (auto) 0 10 ^3/uL (0-0.2); Eosinophils # (auto) 0 10 ^3/uL (0-0.8); Hemoglobin 8.2 g/dL (12.2-16.2); Lymphocytes # (auto) 0.9 10 ^3/uL (0.4-5.4); Monocytes # (auto) 0.5 10 ^3/uL (0-1.3); Neutrophils # (auto) 14.5 10 ^3/uL (1.6-8.6); Neutrophils % (auto) 90.9 % (37.0-80.0)
[2022-12-24 03:51] LABS: Basophils % (auto) 0.2 % (0.0-2.0); Eosinophils % (auto) 0.1 % (0.0-7.0); Hematocrit 24.6 % (36.0-46.0); Lymphocytes % (auto) 5.5 % (10.0-50.0); Mean Corpuscular Hemoglobin 25.4 pg (28.0-32.0); Mean Corpuscular Hgb Conc. 33.4 g/dL (32.0-36.0); Monocytes % (auto) 3.3 % (0.0-12.0); Red Blood Cells 3.23 10^6/uL (4.0-5.20); Red Cell Distribution Width 15.2 % (11.8-14.3); White Blood Cell 15.9 10^3/uL (4.4-10.8)
[2022-12-24 04:10] LABS: Calcium 7.6 mg/dL (8.5-10.1); Potassium 3.5 mmol/L (3.5-5.1)
[2022-12-24 04:13] LABS: Bilirubin, Total 0.6 mg/dL (0.2-1.0); Total Protein 5.1 g/dL (6.4-8.2)
[2022-12-24] MEDS: PIPERACILLIN-TAZOB 3.375GM 100 ML IV SCH ×3 (05:29→21:07)
[2022-12-24] MEDS: DOPamine 3200MCG/ML 250 ML IV SCH (06:50)
[2022-12-24] MEDS: PHENYLEPHRINE INJ 80 MG in SODIUM CHL 0.9% 242 ML IV SCH (07:33)
[2022-12-24] MEDS: MIDAZOLAM DRIP 50 mg/50mL 50 ML IV SCH ×2 (08:05→21:53)
[2022-12-24] MEDS: FUROSEMIDE 20 MG/2 ML VIAL IV SCH (08:06)
[2022-12-24] MEDS: ENOXAPARIN SOD 30 MG/0.3 ML SYRINGE SC SCH (08:06)
[2022-12-24] MEDS ORDERED: FLUCONAZOLE 200MG/100ML 100 ML IV ONE (11:45)
[2022-12-24] MEDS ORDERED: BUMETANIDE 2.5mg/10ml (0.25 mg/ml) INJ IV ONE (11:45)
[2022-12-24] MEDS: NOREPINEPHRINE BITARTRATE 32 MG in SODIUM CHL 0.9% 218 ML IV SCH (13:05)
[2022-12-24] MEDS: DEXTROSE 10% 250 ML Bag IV PRN (16:50)
[2022-12-24] MEDS ORDERED: D5W 5% 1,000 ML IV ONE (17:30)
[2022-12-25] VITALS (57 sets, daily range): BP systolic 41–127; BP diastolic 20–70
[2022-12-25] MEDS: DOPamine 3200MCG/ML 250 ML IV SCH (00:33)
[2022-12-25] MEDS: ACCU-CHEK COMFORT CURVE STRIP VI SCH ×3 (01:59→09:50)
[2022-12-25] MEDS: InsuLIN REG 1unit/0.01ml Soln (100units/ml) SC SCH ×3 (02:00→10:00)
[2022-12-25] MEDS: PROPOFOL 100 ML IV SCH (02:45)
[2022-12-25 04:17] LABS: BUN/Creatinine Ratio 25.8 (10.0-20.0); Basophils # (auto) 0.1 10 ^3/uL (0-0.2); Calcium 7.4 mg/dL (8.5-10.1); Eosinophils # (auto) 0 10 ^3/uL (0-0.8); Hematocrit 24.6 % (36.0-46.0); Hemoglobin 8.2 g/dL (12.2-16.2); Lymphocytes # (auto) 0.6 10 ^3/uL (0.4-5.4); Magnesium 1.9 mg/dL (1.6-2.6); Mean Corpuscular Hemoglobin 25.4 pg (28.0-32.0); Neutrophils # (auto) 10.1 10 ^3/uL (1.6-8.6); Red Cell Distribution Width 15.2 % (11.8-14.3)
[2022-12-25 04:20] LABS: Basophils % (auto) 0.8 % (0.0-2.0); Eosinophils % (auto) 0.3 % (0.0-7.0); Lymphocytes % (auto) 5.6 % (10.0-50.0); Mean Corpuscular Hgb Conc. 33.2 g/dL (32.0-36.0); Mean Corpuscular Volume 76.5 fL (80.0-100.0); Monocytes # (auto) 0.3 10 ^3/uL (0-1.3); Monocytes % (auto) 2.8 % (0.0-12.0); Neutrophils % (auto) 90.5 % (37.0-80.0); Red Blood Cells 3.22 10^6/uL (4.0-5.20); White Blood Cell 11.2 10^3/uL (4.4-10.8)
[2022-12-25 05:20] LABS: Potassium 2.7 mmol/L (3.5-5.1)
[2022-12-25] MEDS: PIPERACILLIN-TAZOB 3.375GM 100 ML IV SCH (06:06)
[2022-12-25] MEDS: NOREPINEPHRINE BITARTRATE 32 MG in SODIUM CHL 0.9% 218 ML IV SCH (06:22)
[2022-12-25] MEDS ORDERED: ALBUMIN 25% 100 ML IV ONE (08:00)
[2022-12-25] MEDS: POTASSIUM CHL 20MEQ/100ML 100 ML IV SCH ×2 (08:33→09:50)
[2022-12-25] MEDS: FUROSEMIDE 20 MG/2 ML VIAL IV SCH (09:50)
[2022-12-25] MEDS: ENOXAPARIN SOD 30 MG/0.3 ML SYRINGE SC SCH (09:50)
[2022-12-25] MEDS: MIDAZOLAM DRIP 50 mg/50mL 50 ML IV SCH (09:51)
[2022-12-25] MEDS ORDERED: FLUCONAZOLE 200MG/100ML 100 ML IV SCH (10:00)
[2022-12-25] MEDS ORDERED: MORPHINE SULFATE INJ 2 MG/ml SYRG IV PRN (12:15)
[2022-12-25] MEDS ORDERED: LORazepam 2MG/ML-1ML VIAL IV PRN (12:15)
== END 2022-12-25 13:08 | DRG 871 ==
LOC: ER 02:03 → EDBD 02:03 → TELE 10:39 → ICU WEST 12-23 00:15
PROVIDERS: ADMIT Nurse Practitioner Family; ATTEND Internal Medicine
PROC: 5A1945Z Respiratory Ventilation, 24-96 Consecutive Hours (ICD-10-PCS; principal; 2022-12-22)
PROC: 0BH17EZ Insertion of Endotracheal Airway into Trachea, Via Natural or Artificial Opening (ICD-10-PCS; 2022-12-22)
DX: A41.9 Sepsis, unspecified organism (principal); E11.00 Type 2 diabetes mellitus with hyperosmolarity without nonketotic hyperglycemic-hyperosmolar coma (NKHHC); E43 Unspecified severe protein-calorie malnutrition; G93.41 Metabolic encephalopathy; I50.43 Acute on chronic combined systolic (congestive) and diastolic (congestive) heart failure; R65.21 Severe sepsis with septic shock; I21.4 Non-ST elevation (NSTEMI) myocardial infarction; J69.0 Pneumonitis due to inhalation of food and vomit; J96.01 Acute respiratory failure with hypoxia; N17.9 Acute kidney failure, unspecified; E87.1 Hypo-osmolality and hyponatremia; D62 Acute posthemorrhagic anemia; E87.21 Acute metabolic acidosis; Z68.1 Body mass index [BMI] 19.9 or less, adult; J91.8 Pleural effusion in other conditions classified elsewhere; Z66 Do not resuscitate; G30.9 Alzheimer's disease, unspecified; F02.80 Dementia in other diseases classified elsewhere, unspecified severity, without behavioral disturbance, psychotic disturbance, mood disturbance, and anxiety; E11.65 Type 2 diabetes mellitus with hyperglycemia; E87.6 Hypokalemia; I48.0 Paroxysmal atrial fibrillation; S40.022A Contusion of left upper arm, initial encounter; S40.021A Contusion of right upper arm, initial encounter; X58.XXXA Exposure to other specified factors, initial encounter; Y93.89 Activity, other specified; Y92.89 Other specified places as the place of occurrence of the external cause; Y99.8 Other external cause status; Z82.0 Family history of epilepsy and other diseases of the nervous system; Z82.49 Family history of ischemic heart disease and other diseases of the circulatory system; Z82.5 Family history of asthma and other chronic lower respiratory diseases
CPT/HCPCS: 36415; 36600; 70450; 71045; 71260; 72125; 74177; 80048; 80053; 80202; 81001; 82010; 82570; 82805; 82962; 83605; 83735; 83880; 84300; 84484; 85007; 85025; 85027; 85610; 85730; 86850; 86900; 86901; 86920; 87040; 87070; 87081; 87086; 87088; 87205; 93005; 93306; 94002; 94003; 96365; 96367; 96375; 99291; G0378; J0692; J1265; J1450; J1815; J2250; J2543; J2704; J3480; J7060; P9047